=== PATIENT | male | born 1955 | race Caucasian/White ===

== ENCOUNTER → 2019-03-10 | Outpatient (CLI) | payer OTHER | END | disposition home or self-care (01) | LOC: PLD 13:49 → LAB SHORT 13:49 | DX: C44.41 Basal cell carcinoma of skin of scalp and neck (principal); D22.72 Melanocytic nevi of left lower limb, including hip | CPT/HCPCS: 88305 ==

== ENCOUNTER → 2019-04-21 | Outpatient (CLI) | payer OTHER | END | disposition home or self-care (01) | LOC: PLD 09:00 → LAB SHORT 09:00 | DX: C44.310 Basal cell carcinoma of skin of unspecified parts of face (principal) | CPT/HCPCS: 88305 ==

== ENCOUNTER → 2019-05-11 | Outpatient (CLI) | payer OTHER ==
[2019-05-11 11:29] LABS: BASOPHILS ABSOLUTE AUTO 0.04 K/mm3 (0.00-0.23); BASOPHILS PERCENT AUTO 1 % (0-2); EOSINOPHILS ABSOLUTE AUTO 0.05 K/mm3 (0.00-0.68); EOSINOPHILS PERCENT AUTO 1 % (0-6); Hematocrit 42.7 % (37.0-53.0); Hemoglobin 14.6 g/dL (13.5-17.5); IMMATURE GRAN ABSOLUTE AUTO 0.02 K/mm3 (0.00-0.10); IMMATURE GRAN PERCENT AUTO 0 % (0-1); LYMPHOCYTES ABSOLUTE AUTO 1.69 K/mm3 (0.84-5.20); LYMPHOCYTES PERCENT AUTO 21 % (21-46); MONOCYTES ABSOLUTE AUTO 1.06 K/mm3 (0.16-1.47); MONOCYTES PERCENT AUTO 13 % (4-13); Mean Corpuscular HGB 31.9 pg (26.0-34.0); Mean Corpuscular HGB Conc 34.2 g/dL (31.5-36.5); Mean Corpuscular Volume 93 fL (80-100); Mean Platelet Volume 9.3 fL (9.1-12.4); NEUTROPHILS ABSOLUTE AUTO 5.15 K/mm3 (1.96-9.15); NEUTROPHILS PERCENT AUTO 64 % (41-73); Platelet Count 293 K/mm3 (150-400); RDW Coefficient Variation 11.9 % (11.7-14.2); RDW Standard Deviation 41.3 fL (35.1-46.3); Red Blood Cell Count 4.57 M/mm3 (4.30-5.90); White Blood Cell Count 8.01 K/mm3 (4.00-11.30)
[2019-05-11 11:41] LABS: Anion Gap 8 mmol/L (6-16); Blood Urea Nitrogen 10 mg/dL (8-24); CO2, Blood 28 mmol/L (21-32); Calcium, Blood 8.7 mg/dL (8.5-10.1); Chloride, Blood 101 mmol/L (98-108); Creatinine, Blood 0.83 mg/dL (0.60-1.20); Glomerular Filtration Rate >60 (60-); Glucose, Blood 96 mg/dL (70-99); Potassium, Blood 4.2 mmol/L (3.5-5.5); Sodium, Blood 137 mmol/L (136-145)
[2019-05-11 11:43] LABS: Troponin I <0.017 ng/mL (0.000-0.040)
== END | disposition home or self-care (01) ==
LOC: LAB SHORT 11:23 → LAB EV 11:23
PROVIDERS: Family Medicine
DX: R07.81 Pleurodynia (principal)
CPT/HCPCS: 80048; 84484; 85025; 85379

== ENCOUNTER 2020-01-10 08:28 | Day surgery (SDC) | payer OTHER ==
[~2020-01-10] VITALS: Ht 172.7 cm; Wt 82.2 kg
[2020-01-10] MEDS ORDERED: TAMS.4ER (09:27)
[2020-01-10] MEDS ORDERED: CELE100 (09:28)
[2020-01-10] MEDS ORDERED: HYDCHL25 (09:28)
[2020-01-10] MEDS ORDERED: CITA20 (09:28)
[2020-01-10] MEDS ORDERED: FINA5 (09:28)
--- NOTE | 2020-01-10 10:38 | NUR ---
01/10/20 Rachel Helton PATIENT REFUSED MULTIPLE OFFERS OF PO FLUIDS.
== END 2020-01-10 10:42 | disposition home or self-care (01) ==
LOC: ORSCSDS 08:28
PROVIDERS: Internal Medicine Gastroenterology
PROC: 0DBG8ZX Excision of Left Large Intestine, Via Natural or Artificial Opening Endoscopic, Diagnostic (ICD-10-PCS; principal; 2020-01-10 09:45)
PROC: 0DBH8ZX Excision of Cecum, Via Natural or Artificial Opening Endoscopic, Diagnostic (ICD-10-PCS; principal; 2020-01-10 09:45)
PROC: 0DBP8ZX Excision of Rectum, Via Natural or Artificial Opening Endoscopic, Diagnostic (ICD-10-PCS; principal; 2020-01-10 09:45)
PROC: 0DBL8ZX Excision of Transverse Colon, Via Natural or Artificial Opening Endoscopic, Diagnostic (ICD-10-PCS; principal; 2020-01-10 09:45)
PROC: 0DBN8ZX Excision of Sigmoid Colon, Via Natural or Artificial Opening Endoscopic, Diagnostic (ICD-10-PCS; principal; 2020-01-10 09:45)
PROC: 0DBK8ZX Excision of Ascending Colon, Via Natural or Artificial Opening Endoscopic, Diagnostic (ICD-10-PCS; principal; 2020-01-10 09:45)
DX: K51.90 Ulcerative colitis, unspecified, without complications (principal); D12.2 Benign neoplasm of ascending colon; K63.5 Polyp of colon; K57.30 Diverticulosis of large intestine without perforation or abscess without bleeding; J45.909 Unspecified asthma, uncomplicated; F32.9 Major depressive disorder, single episode, unspecified; Z87.891 Personal history of nicotine dependence; Z12.11 Encounter for screening for malignant neoplasm of colon; Z79.899 Other long term (current) drug therapy
CPT/HCPCS: J2704; J7120

== ENCOUNTER → 2020-05-31 | Outpatient (CLI) | payer OTHER ==
[~2020-05-31] MED LIST: CELE100; CITA20; FINA5; HYDCHL25; TAMS.4ER
== END | disposition home or self-care (01) ==
LOC: PLD 12:13 → LAB SHORT 12:13
DX: C44.529 Squamous cell carcinoma of skin of other part of trunk (principal)
CPT/HCPCS: 88305

== ENCOUNTER → 2020-06-21 | Outpatient (CLI) | payer OTHER | END | disposition home or self-care (01) | LOC: LAB SHORT 07:40 → PLD 07:40 | DX: D22.5 Melanocytic nevi of trunk (principal) | CPT/HCPCS: 88305 ==

== ENCOUNTER 2021-01-26 08:04 | Day surgery (SDC) | payer OTHER ==
[~2021-01-26] VITALS: Ht 172.7 cm; Wt 82.9 kg
[~2021-01-26 08:04] MED LIST changes: +ALBU90OI INH; +CELE200 PO; +CELEXA40 M1 PO; +Crestor20 MG PO; +FINA5 PO; +HYDCHL25 PO; +LOSA25 PO; +TAMS.4ER PO
== END 2021-01-26 10:05 | disposition home or self-care (01) ==
LOC: ORSCSDS 08:04
PROVIDERS: Podiatrist Foot & Ankle Surgery
PROC: 0SGM04Z Fusion of Right Metatarsal-Phalangeal Joint with Internal Fixation Device, Open Approach (ICD-10-PCS; principal; 2021-01-26 08:45)
DX: M20.21 Hallux rigidus, right foot (principal); I10 Essential (primary) hypertension; J44.9 Chronic obstructive pulmonary disease, unspecified; J45.909 Unspecified asthma, uncomplicated; Z87.891 Personal history of nicotine dependence; Z79.899 Other long term (current) drug therapy
CPT/HCPCS: A9270; C1713; C1769; J0171; J0690; J2250; J2704; J3010; J7120